=== PATIENT | female | born 1995 | race Caucasian/White ===

== ENCOUNTER 2021-06-22 00:01 | Inpatient (IN) | payer OTHER, SELFPAY ==
[2021-06-22] VITALS (206 sets, daily range): BP systolic 89–137; BP diastolic 41–90; PULSE 53–142; RESP 18; TEMP 36.2–37.4; O2SAT 83–100; BMI 28.9
--- NOTE | 2021-06-22 00:01 | LDADM ---
This patient, Nasrin Soriano, was admitted to Labor/Delivery/Recovery 107 on 06/22/21 at 00:01. Plans for labor, pain management and were discussed with patient. Patient/family oriented to hospital policies and general routines including ID bracelet, bed and alarms, visiting hours, pain management, procedures, bathroom and other care routines, personal items, smoking policy, room service/diet and guest tray routines, security routines, and visiting hours. Patient/Family are encouraged to report perceived risks to care and to ask questions if they do not understand what they are told or what they should do. See OBIX for further documentation.
[2021-06-22 00:44] LABS: Basophils Absolute Auto 0.1 K/mm3 (0.0-0.1); Basophils Percent Auto 0.5 % (0.2-1.2); Eosinophils Absolute Auto 0.2 K/mm3 (0-0.3); Hematocrit 33.5 % (37.0-47.0); Hemoglobin 11.6 g/dL (12.0-15.0); Immature Granulocyte Absolute 0.03 K/mm3 (0.00-0.031); Immature Granulocyte Percent A 0.3 % (0-0.5); Lymphocytes Absolute Auto 1.74 K/mm3 (0.9-3.2); Lymphocytes Percent Auto 17.8 % (18.3-44.2); Mean Corpuscular HGB Conc 34.6 g/dl (32-36); Mean Corpuscular Hemoglobin 31.1 pg (26-34); Mean Corpuscular Volume 89.8 fl (80-100); Monocytes Absolute Auto 0.7 K/mm3 (0.1-0.6); Monocytes Percent Auto 7.4 % (2.6-8.5); Neutrophils Absolute Auto 7.1 K/mm3 (1.3-6.7); Platelet Count Result 278 k/mm3 (150-375); Red Blood Count 3.73 M/mm3 (4.2-5.4); Red Cell Distribution Width 13.6 % (11.5-14.5); White Blood Count 9.8 K/mm3 (4.5-10.0)
[2021-06-22] MEDS: LACTATED RINGERS 1,000 ML 125 ML IV CONT ×5 (00:58→23:46)
[2021-06-22] MEDS: miSOPROStol 25 MCG TABLET VAGINAL ×2 (01:43→05:43)
[2021-06-22 07:06] LABS: Rapid Plasma Reagin Non-Reactive (NonReactive)
[2021-06-22] MEDS: OXYTOCIN 30 UNITS/NS 500 ML 30 UNITS/500 ML BAG 6 UNITS IV CONT (10:55)
--- NOTE | 2021-06-22 12:27 | WPDHPUPDATE1 ---
History and Physical Update Update Date/Time: 06/22/21 12:27 25 yo at 40w3d who presents for IOL. She endorses good movement. She denies any vaginal bleeding or leakage of fluid. Her has been uncomplicated thus far. History and Physical has been reviewed, including an updated exam of the patient. There are NO changes in the patient's condition. Risks, benefits, and alternatives have been discussed and questions answered. Patient agrees to proceed with procedure. A/P: admit to L&D routine admission orders Rh+ GBS neg cytotec induction continuous EFM
--- NOTE | 2021-06-22 12:29 | PM.OBPNLAB ---
Pain Control Date/time seen: 06/22/21 12:29 Pain control: tolerating well Pelvic Exam Dilation (cm): 3 station: 0 Amniotic membrane status: Intact Contractions Monitor mode: External Status status: Category l Assessment and Plan Assessment: induction ongoing Comments: AROM for clear fluid
[2021-06-22] MEDS: LACTATED RINGERS 1,000 ML 999 ML IV CONT (13:25)
--- NOTE | 2021-06-22 15:29 | WPDANESEPPF ---
Anes - Initial Pre Proc Eval Procedure: labor epidural Date/Time: 06/22/21 15:29 Surgeon: Ryan Neal MD Pre Op Diagnosis: labor pain Patient Data Age: 25 Gender: F Height: 1.6 m Weight: 74 kg Last Vital Signs Temp 36.2 C L 06/22/21 14:00 Pulse 72 06/22/21 15:16 Resp 18 06/22/21 05:39 BP 110/60 06/22/21 15:16 Pulse Ox 100 06/22/21 15:29 Allergies Allergy/AdvReac Type Severity Reaction Status Date / Time orange Allergy Swelling Verified 06/20/21 15:40 of the Eye Home Medications Medication Instructions Recorded Confirmed Type ferrous sulfate 134 mg PO DAILY 06/20/21 06/20/21 History prenat.vits,yahir,[id number] 1 tablet PO DAILY 06/20/21 06/22/21 History [ #2] Laboratory Tests 06/22/21 06/22/21 00:31 00:31 WBC 9.8 K/mm3 K/mm3 (4.5-10.0) RBC 3.73 M/mm3 L M/mm3 (4.2-5.4) Hgb 11.6 g/dL L g/dL (12.0-15.0) Hct 33.5 % L % (37.0-47.0) MCV 89.8 fl fl (80-100) MCH 31.1 pg pg (26-34) MCHC 34.6 g/dl g/dl (32-36) RDW 13.6 % % (11.5-14.5) Plt Count 278 k/mm3 k/mm3 (150-375) MPV 11.0 fl H fl (7.4-10.4) Immature Gran % (Auto) 0.3 % % (0-0.5) Neut % (Auto) 72.0 % % (45.5-73.1) Lymph % (Auto) 17.8 % L % (18.3-44.2) Hand % (Auto) 7.4 % % (2.6-8.5) Eos % (Auto) 2.0 % % (0-4.4) Baso % (Auto) 0.5 % % (0.2-1.2) Lymph # (Auto) 1.74 K/mm3 K/mm3 (0.9-3.2) Hand # (Auto) 0.7 K/mm3 H K/mm3 (0.1-0.6) Eos # (Auto) 0.2 K/mm3 K/mm3 (0-0.3) Baso # (Auto) 0.1 K/mm3 K/mm3 (0.0-0.1) Abs Immat Gran (auto) 0.03 K/mm3 K/mm3 (0.00-0.031) Absolute Neuts (auto) 7.1 K/mm3 H K/mm3 (1.3-6.7) Absolute Nucleated RBC 0.0 K/mm3 K/mm3 (0.0-0.012) Nucleated RBC % 0.0 % % (0.0-0.2) RPR Non-reactive (NonReactive) Patient hx anesthesia problems: none Family hx anesthesia problems: none Results Review: All pre-operative results and documents have been reviewed as part of the pre-operative evaluation. [facility] Family History Family History (Updated 06/20/21 @ 15:44 by Leo Gutierrez RN) Grandparent Acute myocardial infarction Testicular cancer Cerebrovascular accident Diabetes mellitus Hypertension Social History Social History Smoking status: Never smoker Substance use: never Spiritual care concerns: No Anes - Eval Final PreProcedure Day of Procedure 06/22/21 15:29 Patient weight: overweight ASA classification: II Anesthesia type and monitoring: regional epidural and standard monitoring Results Review: All pre-operative results and documents have been reviewed as part of the pre-operative evaluation. Informed Consent: The patient's anesthetic plan and its attendant risks and benefits were discussed with the patient/family/POA. Questions were solicited and answers provided to the satisfaction of the patient/family/POA.
[2021-06-23] VITALS (163 sets, daily range): BP systolic 84–135; BP diastolic 24–109; PULSE 32–138; RESP 16–18; TEMP 36.2–37.4; O2SAT 78–100
--- NOTE | 2021-06-23 05:53 | P.PNOB_ITS ---
Pain Control Date/time seen: 06/23/21 05:53 Pain control: epidural Comments: Pt becoming more uncomfortable with pushing. Pt has been awake since admission and is exhausted with pushing. Pelvic Exam Dilation (cm): 10 Effacement (%): 100 station: 0 Amniotic membrane status: Ruptured Contractions Monitor mode: Internal Status status: Category ll Assessment and Plan Assessment: induction ongoing Plan: Comments: Pt has been complete and pushing since 0300. head has remained at 0 station. the cervix has noted to be edematous. Pt complains of increased pain with pushing. Concern for CPD. Pt states she cannot push anymore due to pain. Discussed options with patient. Pt would like to proceed with primary c- section for failure to progress.
--- NOTE | 2021-06-23 05:57 | PM.IMHP ---
H&P: HPI History of Present Illness Date/Time: 06/23/21 05:57 Chief Complaint: intrauterine at term Narrative: 25 yo G1PO at 40w3d who presents for IOL. Pt has been uncomplicated thus far. She endorses good movement. Review of Systems Cardiovascular: Cardiovascular: Denies chest pain, Denies leg edema, Denies palpitations, Denies dyspnea and Denies dyspnea on exertion Respiratory: Respiratory: Denies cough, Denies dyspnea and Denies dyspnea on exertion Gastrointestinal: Gastrointestinal: Denies abdominal pain, Denies constipation, Denies diarrhea, Denies nausea and Denies vomiting Genitourinary: Genitourinary: Denies hematuria, Denies urinary frequency, Denies dysuria, Denies pelvic pain, Denies urinary incontinence and Denies vaginal discharge Neurologic: Reports system reviewed and no additional complaints, except as documented Psychiatric: Psychiatric: Reports no additional psychiatric complaints Endocrine: Endocrine: Denies palpitations [facility] Family History Family History (Updated 06/20/21 @ 15:44 by Leo Gutierrez RN) Grandparent Acute myocardial infarction Testicular cancer Cerebrovascular accident Diabetes mellitus Hypertension Social History Social History Smoking status: Never smoker Substance use: never Spiritual care concerns: No Meds Home Medications and Allergies Home Medications Medication Instructions Recorded Confirmed Type ferrous sulfate 134 mg PO DAILY 06/20/21 06/20/21 History prenat.vits,yahir,[id number] 1 tablet PO DAILY 06/20/21 06/22/21 History [ #2] Allergies Allergy/AdvReac Type Severity Reaction Status Date / Time orange Allergy Swelling Verified 06/20/21 15:40 of the Eye Vital Signs Vital Signs - 24 hr 06/22/21 06:01 06/22/21 07:01 06/22/21 08:00 Temperature 36.3 C L Pulse Rate 75 63 Blood Pressure 107/66 105/65 Pulse Oximetry 06/22/21 08:01 06/22/21 09:01 06/22/21 10:01 Temperature Pulse Rate 66 64 70 Blood Pressure 98/51 L 108/66 102/55 L Pulse Oximetry 06/22/21 11:01 06/22/21 12:01 06/22/21 12:30 Temperature 37.0 C Pulse Rate 86 67 Blood Pressure 122/73 113/65 Pulse Oximetry 06/22/21 13:01 06/22/21 13:31 06/22/21 13:32 Temperature 36.6 C Pulse Rate 65 Blood Pressure 105/82 Pulse Oximetry 100 83 L 06/22/21 13:37 06/22/21 13:38 06/22/21 13:41 Temperature Pulse Rate 96 86 Blood Pressure 109/90 131/70 Pulse Oximetry 99 06/22/21 13:42 06/22/21 13:43 06/22/21 13:44 Temperature Pulse Rate 84 Blood Pressure 115/64 Pulse Oximetry 100 96 06/22/21 13:46 06/22/21 13:48 06/22/21 13:49 Temperature Pulse Rate 94 101 H Blood Pressure 123/71 132/64 Pulse Oximetry 100 06/22/21 13:51 06/22/21 13:53 06/22/21 13:54 Temperature Pulse Rate 105 H 89 Blood Pressure 107/67 117/66 Pulse Oximetry 100 06/22/21 13:56 06/22/21 13:58 06/22/21 13:59 Temperature Pulse Rate 89 89 Blood Pressure 101/63 118/69 Pulse Oximetry 100 06/22/21 14:00 06/22/21 14:01 06/22/21 14:04 Temperature 36.2 C L Pulse Rate 98 101 H Blood Pressure 96/53 L 89/66 L Pulse Oximetry 100 06/22/21 14:06 06/22/21 14:08 06/22/21 14:09 Temperature Pulse Rate 79 68 Blood Pressure 101/67 115/83 Pulse Oximetry 100 06/22/21 14:11 06/22/21 14:13 06/22/21 14:14 Temperature Pulse Rate 64 75 Blood Pressure 137/66 118/73 Pulse Oximetry 100 06/22/21 14:16 06/22/21 14:18 06/22/21 14:19 Temperature Pulse Rate 71 56 L Blood Pressure 115/67 112/62 Pulse Oximetry 100 06/22/21 14:21 06/22/21 14:23 06/22/21 14:24 Temperature Pulse Rate 61 64 Blood Pressure 112/67 116/64 Pulse Oximetry 100 06/22/21 14:26 06/22/21 14:28 06/22/21 14:29 Temperature Pulse Rate 65 62 Blood Pressure 108/41 L 111/67 Pulse Oximetry 100 06/22/21 14:31 06/22/21 14:33 06/22/21 14:34 Dangelo
[2021-06-23] MEDS: ceFAZolin 2 GM/D5W 50 ML 2 GM/50 ML BAG IVPB (06:39)
--- NOTE | 2021-06-23 07:39 | W.PM.PROC2 ---
Procedure Note - Detailed Date of Procedure 06/23/21 Pre-op Diagnosis intrauterine at term arrest of descent Post-op Diagnosis same Procedure Performed low transverse section Surgeon Ryan Neal MD Anesthesia spinal and epidural Indications arrest of descent Description of Procedure The patient was taken to the operating room. A combined spinal epidural anesthesic was administered and found to be adequate at a t-10 level. The patient was placed in a supine position with a slight left lateral tilt. A wong catheter was placed with return of clear urine. A Bovie grounding pad was placed. Surgical prep was performed and surgical drapes were placed. A surgical time out was performed. A Pfannenstiel skin incision was then made with the scalpel and carried through to the underlying layer of fascia. The fascia was then incised in the midline and the incision was extended laterally with the Hyde scissors. The superior aspect of the fascia was then grasped with the William clamps, elevated, and the underlying rectus muscles dissected off bluntly and sharply. Attention was then turned to the inferior aspect of this incision which, in a similar fashion, was grasped, tented up with the William clamps, and the rectus muscles dissected off both bluntly and sharply. The rectus muscles were then in the midline. The peritoneum was identified and entered bluntly. The peritoneal incision was then extended superiorly and inferiorly with good visualization of the bladder. The vesico-uterine serosa was identified and dissected to create a bladder flap. The bladder blade was reinserted. The uterus was inspected for rotation. A low-transverse uterine incision was made sharply with the scalpel and entry was made into the uterine cavity. The uterine incision was extended laterally bluntly. The bladder blade was removed and the fetus was delivered atraumatically. The nose and mouth were suctioned with a bulb syringe. The umbilical cord was clamped twice and cut. The was handed off to the waiting staff. At the time of the delivery, the had good color, tone and grimace. The infant cried with minimal stimulation. A second segment of umbilical cord was clamped and cut for cord blood gasses. Cord blood was collected for determination of the blood type and for direct Hernandez. The placenta was delivered spontaneously without difficulty. The placenta appeared grossly normal and complete. The uterus was exteriorized and cleared of all clots and debris. The uterine incision was repaired using 0-monocryl suture in a running fashion. A second layer of 0 Monocryl suture was used in an imbricating fashion to obtain excellent hemostasis and uterine strength. The uterine closure was inspected for hemostasis. The posterior aspect of the uterus and the broad ligaments were inspected and the posterior cul-de-sac cleared of fluid and blood clots. The uterine closure was again inspected and found to be hemostatic. The uterus was returned to the abdominal cavity. The pericolic gutters were inspected and were cleared of all blood clots and debris. The uterine closure was then re inspected to ensure hemostasis as were all subfascial tissues. The peritoneum was closed using 3-0 vicryl in a running fashion. The fascia was reapproximated with 0-vicryl in a running fashion. The subcutaneous tissue was irrigated and hemostasis achieved with electrocautery. It was reapproximated with 3-0 vicryl in a running fashion. The skin was closed with 4-0 vicryl in a subcuticular fashion. A sterile dressing was applied to the wound. The patient tolerated the procedure well. Sponge, lap and needle counts were correct times three. The patient was taken to recovery in stable condition and without anticipated complications. Estimated Blood Loss 525 Urine Output 100 Drains No Packing No Pathology none sent Complications No immediate complications Condition stable D
[2021-06-23] MEDS: OXYTOCIN 30 UNITS/NS 500 ML 30 UNITS/500 ML BAG 125 UNITS IV CONT (08:12)
[2021-06-23] MEDS: KETOROLAC 30 MG/ML VIAL (*BKC) IV PUSH (09:22)
--- NOTE | 2021-06-23 11:50 | PC.NURSE ---
Consult with pt., mother reports she was given a nipple shield in L&D. Infant was unable to latch and draw nipple in due to flat nipples. Infant appears to have a tight frenulum and unable to thrust tongue past gum ridge. Mother has flat nipples with bruising noted to left nipple. Reviewed feeding cues, frequencies, duration of feedings, feeding elimination flow sheet, and signs of adequate intake. Demonstrated stimulation techniques to wake for feeding. Assisted with infant to breast. Reviewed positioning/alignment in cross cradle, holding breast in ?U? hold and guided asymmetrical latch on. Reviewed rational for each. is making eager attempts. Several attempts made without a successful latch. Suggested to use nipple shield. Instructions given on application and cleaning of shield. Discussed nipple shield precautions and possible complications. Patient able to return demonstration on proper application of shield. Discussed the need to initiate pumping if continues to nurse with the shield. Patient verbalizes understanding. With shield in place, several attempts before was able to latch correctly. Infant nursed sleepily for bursts of suckling followed with long pausing occasional swallowing noted. Reviewed signs of a correct latch, effective nursing and suck swallow ratio. Discussed the difference of effective vs ineffective feeding. Reviewed infant is latching with good burst of suckling, he is not feeding consistently with adequate milk transfer at this time and continues to need to be supplement after . Feeding options discussed, Feeding Plan is for mother to put infant to breast each feeding for up to 15 minutes, then pace feed supplement 20 mls and pump for 10-15 minutes. Parents are comfortable with supplementation and pumping. If infant begins to nurse effectively with long draws and frequent swallowing noted, infant may decrease supplementation and discontinue pumping. Suggested mother have LC spa director/finance observe feeding before discontinuing supplementation. Discussed increasing supplementation as infant requires to satisfactions. Reviewed paced feeding and suggested to stop when is satisfied, as long as is having required output. With increased supplementation may not want to feed for 4 hours. Mother will continue to pump on infant feeding schedule and will increase session to 20 minutes if pumping every 4 hours. Instructed mother to call out for RN assistance if she is unable to latch infant for feeding or she has discomfort with nursing. Instructed feeding should be initiated three hours from start of last feeding or if feeding cues are noted before. Mother voiced understanding of information shared.
--- NOTE | 2021-06-23 12:00 | PC.NURSE ---
Breast pump provided due to ineffective feeding/nipple shield use. Instructions given on breast pump care and usage, pumping schedule, nipple care, and collection and storage of breast milk. Encouraged [id number], breast massage and manual expression to stimulate supply. Assessed patient for correct flange size, placement and draw. Patient verbalizes and demonstrates understanding of instructions.
--- NOTE | 2021-06-23 13:58 | PC.NURSE ---
1040-Patient transferred to post room #282 via stretcher. Support person present. Oriented to unit, room, information board, rooming in, admission packet and security measures. Patient verbalizes understanding.
[2021-06-23] MEDS: DEXTROSE 5%/0.45% SOD CHL 1,000 ML 125 ML IV CONT (15:26)
--- NOTE | 2021-06-23 15:30 | PC.NURSE ---
Mother called out for assist with feeding. Assisted with to breast. Reviewed positioning/alignment in football, holding breast in C hold and guided asymmetrical latch on. was able to latch correctly with nipple shield. Infant nursed sleepily with a few short bursts followed with long pausing and falling asleep. Several attempts made to wake infant to nurse. Mother will supplement and pump.
[2021-06-23] MEDS: DOCUSATE SODIUM 100 MG CAPSULE PO (17:40)
[2021-06-23] MEDS: HYDROcodone/acetaminophen (*CRX) 10-325 MG TABLET 1 TAB PO (20:30)
[2021-06-23] MEDS: IBUPROFEN 600 MG TABLET PO (20:30)
[2021-06-24] VITALS: BP 98/60; PULSE 90; RESP 18; TEMP 36.8; O2SAT 100
[2021-06-24] MEDS: IBUPROFEN 600 MG TABLET PO ×3 (03:39→17:02)
[2021-06-24] MEDS: HYDROcodone/acetaminophen (*CRX) 5-325 MG TABLET 1 TAB PO ×3 (03:39→17:03)
[2021-06-24 04:38] VITALS: BP 108/57; PULSE 92; RESP 16; TEMP 37; O2SAT 100
[2021-06-24 04:44] LABS: Basophils Absolute Auto 0.1 K/mm3 (0.0-0.1); Basophils Percent Auto 0.4 % (0.2-1.2); Eosinophils Absolute Auto 0.2 K/mm3 (0-0.3); Eosinophils Percent Auto 1.4 % (0-4.4); Hematocrit 26.2 % (37.0-47.0); Hemoglobin 8.8 g/dL (12.0-15.0); Immature Granulocyte Absolute 0.06 K/mm3 (0.00-0.031); Immature Granulocyte Percent A 0.5 % (0-0.5); Lymphocytes Absolute Auto 1.29 K/mm3 (0.9-3.2); Mean Corpuscular HGB Conc 33.6 g/dl (32-36); Mean Corpuscular Hemoglobin 31.4 pg (26-34); Mean Corpuscular Volume 93.6 fl (80-100); Mean Platelet Volume 10.7 fl (7.4-10.4); Monocytes Percent Auto 7.6 % (2.6-8.5); Neutrophils Absolute Auto 10.4 K/mm3 (1.3-6.7); Neutrophils Percent Auto 80.1 % (45.5-73.1); Platelet Count Result 202 k/mm3 (150-375); Red Cell Distribution Width 14.1 % (11.5-14.5)
--- NOTE | 2021-06-24 09:01 | P.PNOB_ITS ---
OB - PN: Subj Subjective Date/time seen: 06/24/21 09:01 Patient comments: no complaints, pain well controlled, tolerating diet and flatus present OB - PN: Obj Data Labs CBC & Chem 7: 06/24/21 03:47 Labs: Laboratory Results - last 24 hr 06/23/21 06/24/21 10:30 03:47 WBC 13.0 H RBC 2.80 L Hgb 8.8 L Hct 26.2 L MCV 93.6 MCH 31.4 MCHC 33.6 RDW 14.1 Plt Count 202 MPV 10.7 H Immature Gran % (Auto) 0.5 Neut % (Auto) 80.1 H Lymph % (Auto) 10.0 L [place] % (Auto) 7.6 Eos % (Auto) 1.4 Baso % (Auto) 0.4 Lymph # (Auto) 1.29 [place] # (Auto) 1.0 H Eos # (Auto) 0.2 Baso # (Auto) 0.1 Abs Immat Gran (auto) 0.06 H Absolute Neuts (auto) 10.4 H Absolute Nucleated RBC 0.0 Nucleated RBC % 0.0 Blood Type A Positive Antibody Screen Negative OB - PN A/P Plan day: 1 Plan: routine care Comments: patient doing well H/H , will start iron supplementation afebrile, VSS incision C/D/I wong removed, voiding spontaneously plan for infant circumcision today. Risks, benefits, alternatives discussed. Consent obtained continue routine post op care Time Spent With Patient Time: Total time spent is greater than 50% in coordination of care (as documented) at patient's floor/unit and/or counseling patient: Time with patient: less than 15 minutes Review of Systems Constitutional: Constitutional: Reports no additional constitutional complaints Cardiovascular: Cardiovascular: Reports no additional cardiovascular complaints Respiratory: Respiratory: Reports no additional respiratory complaints Gastrointestinal: Gastrointestinal: Reports no additional gastrointestinal complaints Genitourinary: Genitourinary: Reports no additional female genitourinary complaints Exam Const: General: comfortable and no acute distress Resp: Effort & Inspection: normal respiratory effort Auscultation: clear to auscultation bilaterally Cardio: Rate: regular rate GI: GI Palp: Yes Soft to palpation, Yes Tenderness to palpation present (GI) (around incision ) and No Guarding due to palpation present (GI) Auscultation: normal bowel sounds Other: incision C/D/I, covered with Dermabond Psych: Appearance: grossly normal Mental Status: mental status grossly normal Affect: normal affect
[2021-06-24] MEDS: POLYSACCHARIDE IRON COMPLEX 150 MG CAPSULE PO ×2 (09:33→17:02)
[2021-06-24] MEDS: DOCUSATE SODIUM 100 MG CAPSULE PO ×2 (09:33→17:02)
[2021-06-24] MEDS: MULTIVIT/MIN/PREN/FOL AC/IRON TABLET 1 TAB PO (09:33)
[2021-06-24 11:50] VITALS: BP 101/58; PULSE 79; RESP 14; TEMP 36.4; O2SAT 99
--- NOTE | 2021-06-24 12:02 | WPDANLDNPN2 ---
Anes-Prog Note L&D-Neuraxial Date/Time: 06/24/21 12:02 Neuraxial medications: intrathecal PF morphine Opiod-related complaints: none Patient feedback: Patient satisfied with post-operative pain management.
--- NOTE | 2021-06-24 12:03 | WPDANLDPN2 ---
Anes-Prog Note L&D Date/Time: 06/24/21 12:03 Comfortable throughout: section Neuraxial method: spinal Epidural/Spinal procedure site: clean & non-tender Neuro status: Neuro function grossly intact. Cardiovascular status: normal Respiratory status: normal Airway patency: baseline Mental status: baseline Post-Op hydration status: normal Vital Signs: Last Vital Signs Temp 36.4 C 06/24/21 11:50 Pulse 79 06/24/21 11:50 Resp 14 06/24/21 11:50 BP 101/58 L 06/24/21 11:50 Pulse Ox 99 06/24/21 11:50 Pain score (VAS): 0 I/O: Intake & Output 06/23/21 06/24/21 06/24/21 23:59 07:59 15:59 Intake Total 877 Output Total 500 2400 Balance 377 -2400 Post-procedural complaints: none Patient feedback: Patient satisfied with anesthetic care.
[2021-06-25] MEDS: HYDROcodone/acetaminophen (*CRX) 10-325 MG TABLET 1 TAB PO ×2 (02:30→08:54)
[2021-06-25] MEDS: SIMETHICONE 80 MG TAB.CHEW PO (02:30)
[2021-06-25] MEDS: IBUPROFEN 600 MG TABLET PO ×2 (02:30→08:53)
--- NOTE | 2021-06-25 08:12 | P.DS_ITS ---
DS: Admitting Diagnosis Discharge Date 06/25/21 Admitting Diagnosis intrauterine at term OB - DS: Summary OB Procedures : None OB Procedures Intrapartum: OB Procedures: : None Peripartum Data Infant Delivery Method: Section Procedures: Procedures Operation Date: 06/23/21 06:30 Actual Procedure Side Surgeon p Section Ryan Neal MD complications: none Status at Discharge Functional status at discharge: independent ambulation Overall status at discharge: patient is progressing back to baseline Time Spent with Patient Time attestation: Total time spent providing and/or coordinating discharge services: Time spent: Less than 30 minutes Exam Const: General: comfortable and no acute distress Resp: Effort & Inspection: normal respiratory effort Auscultation: clear to auscultation bilaterally Cardio: Rate: regular rate GI: Inspection: non-distended GI Palp: Yes Soft to palpation, No Firmness to palpation present (GI), Yes Tenderness to palpation present (GI) (mild tend erness over incision ) and No Guarding due to palpation present (GI) Auscultation: normal bowel sounds Psych: Appearance: grossly normal Mental Status: mental status grossly normal Discharge Plan Discharge Discharging Clinician: Ryan Neal Patient Disposition: Home, Self-Care Activity: as tolerated and pelvic rest Diet: regular Patient Instructions: Antibiotic Form, (DC) Stand Alone Forms: General Discharge Information Follow-up/Referrals: Ryan Neal MD [Physician] - 4 Weeks Discharge Medications: New oxycodone-acetaminophen 5-325 mg tablet 1 tablet PO Q6H PRN (Reason: pain) Qty: 28 RF: 0 acetaminophen [Mapap (acetaminophen)] 325 mg Tablet 650 mg PO Q6H PRN (Reason: Mild Pain (1-3)) Qty: 30 RF: 0 ibuprofen 600 mg Tablet 600 mg PO Q6H PRN (Reason: Cramping) Qty: 30 RF: 0 Continued ferrous sulfate 134 mg (27 mg iron) Tablet 134 mg PO DAILY RF: 0 #2 Tablet 1 tablet PO DAILY RF: 0 Date of admission: 06/22/21 00:01 Primary Care Provider: PHYSICIAN,INSURANCE COMPLIANCE ANALYST Admitting Provider: Ryan Neal Attending physician on admission: Ryan Neal Condition: Stable
[2021-06-25 08:25] VITALS: BP 107/50; PULSE 80; RESP 16; TEMP 36.1; O2SAT 100
[2021-06-25] MEDS: POLYSACCHARIDE IRON COMPLEX 150 MG CAPSULE PO (08:53)
[2021-06-25] MEDS: DOCUSATE SODIUM 100 MG CAPSULE PO (08:54)
[2021-06-25] MEDS: MULTIVIT/MIN/PREN/FOL AC/IRON TABLET 1 TAB PO (08:54)
[2021-06-25] MEDS: TETANUS,DIPHTHERIA,AC PERTUSSIS ADULT (0.5 ML) BOOSTRIX IM (08:55)
--- NOTE | 2021-06-25 08:55 | PC.NURSE ---
Patient viewed the discharge video Mother & Baby Care, The First Two Weeks . Patient was given the opportunity and encouraged to ask questions. Patient verbalized understanding of information shared and has been given the mother/baby guide for home reference.
[2021-06-27 09:00] VITALS: BP 116/75; PULSE 72; RESP 16; TEMP 37.1; O2SAT 100
== END 2021-06-25 12:41 | disposition home or self-care (01) | DRG 540 ==
LOC: ANHLDR 15:30 → ANHOB2 06-23 10:58
PROVIDERS: Admitting Provider Student in an Organized Health Care Education/Training Program; Visit Provider Student in an Organized Health Care Education/Training Program
PROC: 10D00Z1 Extraction of Products of Conception, Low, Open Approach (ICD-10-PCS; CPT 59514; principal; 2021-06-23 06:30)
DX: O62.1 Secondary uterine inertia (principal); O77.0 Labor and delivery complicated by meconium in amniotic fluid; Z3A.40 40 weeks gestation of pregnancy; Z37.0 Single live birth
CPT/HCPCS: 36415; 85025; 86592; 86850; 86900; 86901; 90715; A9270; J0131; J0456; J0690; J1885; J2274; J2405; J2590; J2795; J3010; J7120

== ENCOUNTER 2023-08-30 02:08 | Day surgery (SDC) | payer OTHER, SELFPAY ==
--- NOTE | 2023-08-27 16:09 | P.HP_ITS ---
H&P: HPI History of Present Illness Date/Time: 08/27/23 16:09 Chief Complaint: Pelvic pain and heavy bleeding Narrative: 27 para 1 for laparoscopy hysteroscopy dilatation curettage. Her complaints are pelvic pain pelvic discomfort dyspareunia as well as heavy bleeding. Ultrasound was essentially unremarkable shortness thickened endometrium. She will undergo laparoscopy hysteroscopy dilatation curettage risks and benefits reviewed including minutes was aspiration pneumonia bleeding transfusion infection perforation injury to bowel, bladder, ureters, or other internal organs with need for open laparotomy. She received the ACOG handout entitled laparoscopy as well as hysteroscopy dilatation curettage and asked to proceed [facility] Family History Family History Grandparent Acute myocardial infarction Testicular cancer Cerebrovascular accident Diabetes mellitus Hypertension Social History Social History Smoking status: Never smoker Substance use: never Spiritual care concerns: No Meds Home Medications and Allergies Home Medications Medication Instructions Recorded Confirmed Type ferrous sulfate 134 mg (27 mg 134 mg PO DAILY 06/20/21 06/20/21 History iron) tablet prenat.vits,yahir,gnd-naon-xfnez 1 tablet PO DAILY 06/20/21 06/22/21 History acetaminophen 325 mg tablet (Mapap 650 mg PO Q6H PRN Mild Pain (1-3) 06/25/21 Rx (acetaminophen)) #30 tabs ibuprofen 600 mg tablet 600 mg PO Q6H PRN Cramping #30 tabs 06/25/21 Rx oxycodone-acetaminophen 5 mg-325 1 tablet PO Q6H PRN pain #28 tabs 06/25/21 Rx mg tablet Allergies Allergy/AdvReac Type Severity Reaction Status Date / Time orange Allergy Swelling Verified 06/20/21 15:40 of the Eye Exam Const: General: cooperative, healthy appearing and comfortable Nutritional Appearance: average body habitus Orientation/consciousness: oriented to person, oriented to place and oriented to time HENMT: Head: normal to inspection Resp: Effort & Inspection: normal respiratory effort Cardio: Rate: regular rate Rhythm: regular rhythm Heart sounds: S1 normal heart sound present and S2 normal heart sound present GI: Inspection: normal to inspection Auscultation: normal bowel sounds : External Female Exam: normal external appearance Speculum Exam - Vagina: normal appearance of the vagina Speculum Exam - Cervix: normal appearance of the cervix Bimanual exam- vagina & uterus: Uterine tenderness Bimanual Exam- Adnexa, other: tender bilaterally Assessment and Plan Assessment and plan (1) Excessive bleeding: Code(s): R58 - Hemorrhage, not elsewhere classified Status: Acute (2) Pelvic pain: Code(s): R10.2 - Pelvic and perineal pain Status: Acute
[2023-08-28 12:16] VITALS: BMI 25.7
--- NOTE | 2023-08-28 12:21 | PC.NURSE ---
Report to the Outpatient Waiting Room, entrance under the green pavilion located off [facility], at time 0600 on date 08/30/23. Planned Procedure Time: 0730. Time changes happen often and if your time is changed the preop area will call you the afternoon before. - You and your visitor will be asked to self-screen and do not enter if you have any COVID symptoms. - A mask is optional within the hospital at this time. Patients may have clear liquids (water, carbonated beverages, clear teas, apple juice) until 3 hours prior to surgery with a maximum of 20 ounces. - No food from midnight until time of surgery Take the following medications with a SIP of water the morning of surgery: BUPROPION DO NOT STOP ANY OF YOUR OTHER PRESCRIPTION MEDICATIONS PRIOR TO SURGERY ?EXCEPT THE FOLLOWING Medications to discontinue per physician: N/A Date to take last dose: N/A Please no make-up, nail maltese, hairspray, perfume, deodorant, or body powder the day of surgery. No jewelry (including any body piercings) or valuables the day of surgery, leave them at home. Please take a shower or bath the night before, or the morning of, surgery with an antibacterial soap. Wear comfortable, loose fitting clothing. - Jewelry must be removed prior to entering the operating room. Rings and piercings that are not removed may be cut off. - The hospital will not accept responsibility for valuables. - Please leave all valuables, including medications, at home the day of surgery. If you are going home after surgery, a licensed screw driver operator must drive you home. - NO public transportation without another adult if you receive anesthesia. - We recommend that an adult stay with you for 24 hours following discharge. - We also recommend that you do not drive, make important decision, drink alcoholic beverages, or take any drugs that were not prescribed by your health care provider for at least 24 hours after your discharge time. Follow any additional instructions given to you from your surgeon. If you or anyone in your household have experienced Covid symptoms in the past week, please notify your surgeon or the nurse liaison at the phone number below for possible testing. Telephone instructions given to PT Jose David PINZON and asked if any additional questions and then verbalized understanding. Patient advised to call surgeon office or pre surgery nurse liaison [phone] if any additional questions.
[2023-08-30] VITALS (8 sets, daily range): BP systolic 90–116; BP diastolic 59–75; PULSE 72–92; RESP 11–18; TEMP 36.2–36.6; O2SAT 98–100
--- NOTE | 2023-08-30 06:14 | WPDHPUPDATE1 ---
History and Physical Update Update Date/Time: 08/30/23 06:14 History and Physical has been reviewed, including an updated exam of the patient. There are NO changes in the patient's condition. Risks, benefits, and alternatives have been discussed and questions answered. Patient agrees to proceed with procedure.
[2023-08-30] MEDS: SCOPOLAMINE 1.5 MG PATCH TRANSDERM (06:40)
[2023-08-30] MEDS: LACTATED RINGERS 1,000 ML 30 ML IV CONT ×2 (06:40→09:25)
[2023-08-30] MEDS: KETOROLAC 15 MG/ML VIAL (*BKC) IV PUSH (06:42)
[2023-08-30] MEDS: ACETAMINOPHEN 500 MG TABLET 1000 MG PO (06:42)
[2023-08-30 06:48] LABS: Hematocrit 37.9 % (37.0-47.0); Hemoglobin 12.3 g/dL (12.0-15.0)
--- NOTE | 2023-08-30 06:59 | P.PNAN_ITS ---
Anes - Initial Pre Proc Eval Procedure: Operation Date: 08/30/23 07:30 Proposed Procedures p Diagnostic Laparoscopy, Hysteroscopy with Dilation and Curettage - Chris Valles MD Date/Time: 08/30/23 06:59 Surgeon: Chris Valles MD Pre Op Diagnosis: Menorrhagia, Dysmenorrhea, Pelvic pain Patient Data Age: 27 Gender: F Height: 1.6 m Weight: 67.7 kg Last Vital Signs Temp 36.6 C 08/30/23 06:15 Pulse 91 08/30/23 06:15 Resp 16 08/30/23 06:15 BP 116/74 08/30/23 06:15 Pulse Ox 100 08/30/23 06:15 O2 Del Method Room Air 08/30/23 06:15 Allergies Allergy/AdvReac Type Severity Reaction Status Date / Time orange Allergy Swelling Verified 08/30/23 06:22 of the Eye Home Medications Medication Instructions Recorded Confirmed Type bupropion HCl 300 mg 24 hr tablet, 300 mg PO DAILY 08/28/23 08/28/23 History extended release hydrocodone 5 mg-acetaminophen 325 1 tablet PO Q4H PRN pain #20 tabs 08/30/23 Rx mg tablet Laboratory Tests 08/30/23 06:30 Hgb 12.3 D g/dL (12.0-15.0) Hct 37.9 % (37.0-47.0) Patient hx anesthesia problems: none Family hx anesthesia problems: none Results Review: All pre-operative results and documents have been reviewed as part of the pre- operative evaluation. [facility] Past Medical History Medical History (Updated 08/30/23 @ 07:00 by Chris Ohara MD) Anxiety Overweight Surgical History Surgical History (Updated 08/30/23 @ 07:00 by Chris Ohara MD) History of section Family History Family History Grandparent Acute myocardial infarction Testicular cancer Cerebrovascular accident Diabetes mellitus Hypertension Social History Social History Smoking status: Never smoker Alcohol intake: never Substance use: never Substance use type: does not use Living arrangements: with family Spiritual care concerns: No Anes - Eval Final PreProcedure Day of Procedure 08/30/23 06:59 Patient weight: overweight Heart: regular rate and rhythm Lungs: clear to auscultation Airway: Mallampati scale class II Neurological: alert and oriented Last oral intake: >/= 8 hours ASA classification: II Emergent: no Anesthesia type and monitoring: general ETT and standard monitoring Results Review: All pre-operative results and documents have been reviewed as part of the pre- operative evaluation. Informed Consent: The patient's anesthetic plan and its attendant risks and benefits were discussed with the patient/family/POA. Questions were solicited and answers provided to the satisfaction of the patient/family/POA.
--- NOTE | 2023-08-30 08:00 | W.PM.PROC2 ---
Procedure Note - Detailed Date of Procedure 08/30/23 Pre-op Diagnosis Menorrhagia, Dysmenorrhea, Pelvic pain Post-op Diagnosis Same (With endometriosis) Procedure Performed laparoscopic destruction endometriosis /hysteroscopy dilatation Surgeon Chris Valles MD Anesthesia General Indications is a 27-year-old with pelvic pain and irregular bleeding Findings endometrial uterosacral approximately cc of seen normal-appearing ovaries and tubes bilaterally. Normal-appearing uterus. Normal-appearing appendix and Description of Procedure patient was prepped draped sterile placed dorsal position. Under excellent general anesthesia weighted speculum placed posterior fornix. Anterior lip of the cervix grasped with single-tooth. The Shafer's cannula inserted the cervix and attached to the single-tooth. Bladder draining clear urine weighted speculum was. The gloves were changed. An infraumbilical incision made Veress needle passed in the abdomen. Abdomen filled with CO2 gas to 15 the 5mm trocar advanced in the abdomen under direct visualization injury seen. Patient placed in Trendelenburg and a suprapubic incision made. The 5 trocar advanced under direct visualization assuring. The above findings were noted. The [id number] serosanguineous fluid was removed from cul-de-sac. This was irrigated clear. Small areas of powder burn endometriosis adrien looking endometriosis was seen and these point cauterized at 35 w per 2nd. Irrigation undertaken until clear photo documentation was undertaken. Lower sites removed after gas removed from the abdomen. The incisions closed with 4 Monocryl. Attention was turned to the hysteroscopic portion. The uterus sounded to 7cm. Serial dilatation with fragmented dilators performed followed by passage of the fetus hysteroscope. Fairly normal-appearing endometrium was seen but it was somewhat irregular. Each fallopian tube os could be seen no evidence of polyp or other abnormality seen. The uterus was then scraped over the entire 360? removing a mucoid substance. Under good grating sound was heard the instruments were withdrawn. The patient was awakened went to recovery in satisfactory condition. All sponge, needle, instrument counts were correct. There were no immediate complications Estimated Blood Loss 5 Drains No Packing No Pathology Yes Complications No immediate complications Condition Stable Disposition PACU
[2023-08-30] MEDS: fentaNYL CITRATE INJ (*CRX) 100 MCG/2 ML VIAL 25 MCG IV PUSH ×2 (08:28→08:31)
[2023-08-30] MEDS: ONDANSETRON INJ 4 MG/2 ML VIAL IV PUSH (08:47)
[2023-08-30] MEDS: oxyCODONE HCL (*CRX) 5 MG TAB IR PO (09:20)
== END 2023-08-30 10:05 | disposition home or self-care (01) ==
PROVIDERS: PCP Physician Assistant; Visit Provider Obstetrics & Gynecology
PROC: 0UDB8ZZ Extraction of Endometrium, Via Natural or Artificial Opening Endoscopic (ICD-10-PCS; CPT 58558; principal; 2023-08-30 07:30)
DX: N84.0 Polyp of corpus uteri (principal); R10.2 Pelvic and perineal pain; N94.10 Unspecified dyspareunia; N92.0 Excessive and frequent menstruation with regular cycle
CPT/HCPCS: 58662; 58558; 36415; 85014; 85018; 86850; 86900; 86901; 88305; A9270; J0330; J1100; J1885; J2250; J2405; J2704; J3010; J7120

== ENCOUNTER 2024-05-17 13:04 | Observation (INO) | payer OTHER, SELFPAY ==
[2024-05-17 13:28] VITALS: BP 80/62; PULSE 92
[2024-05-17 13:29] VITALS: BP 107/61; PULSE 85
[2024-05-17 13:30] VITALS: BP 105/64; PULSE 86
[2024-05-17] MEDS: METOCLOPRAMIDE HCL INJ 10 MG/2 ML VIAL IV PUSH (13:51)
[2024-05-17] MEDS: diphenhydrAMINE HCl INJ 50 MG/ML VIAL 25 MG IV PUSH (13:53)
[2024-05-17 14:01] VITALS: BP 112/64; PULSE 87
[2024-05-17 14:11] VITALS: BMI 27.7
[2024-05-17] MEDS: CAFFEINE 200 MG TABLET PO (14:20)
[2024-05-17 14:22] LABS: OBXCEM ROM Plus Negative
[2024-05-17 14:30] VITALS: BP 99/56; PULSE 77
[2024-05-17] MEDS: IRON SUCROSE COMPLEX 200 MG in SODIUM CHLORIDE 0.9% IV 100 ML 220 MG IVPB (14:50)
--- NOTE | 2024-06-09 12:13 | PM.IMHP ---
H&P: HPI History of Present Illness Date/Time: 06/09/24 12:13 Chief Complaint: Term with previous section Narrative: a 28-year-old multiparous patient for repeat section. Her has been uncomplicated. [facility], [facility] Past Medical History Medical History (Updated 06/09/24 @ 12:14 by Chris Valles MD) Anxiety Overweight Surgical History Surgical History (Updated 06/09/24 @ 12:14 by Chris Valles MD) History of section Family History Family History Grandparent Acute myocardial infarction Testicular cancer Cerebrovascular accident Diabetes mellitus Hypertension Social History Social History Smoking status: Never smoker Alcohol intake: never Substance use: never Substance use type: does not use Living arrangements: with family Spiritual care concerns: No Meds Home Medications and Allergies Home Medications Medication Instructions Recorded Confirmed Type bupropion HCl 300 mg 24 hr tablet, 300 mg PO DAILY 08/28/23 08/28/23 History extended release hydrocodone 5 mg-acetaminophen 325 1 tablet PO Q4H PRN pain #20 tabs 08/30/23 Rx mg tablet Allergies Allergy/AdvReac Type Severity Reaction Status Date / Time orange Allergy Swelling Verified 08/30/23 06:22 of the Eye Exam Const: General: cooperative, healthy appearing and comfortable Nutritional Appearance: average body habitus Orientation/consciousness: oriented to person, oriented to place and oriented to time Resp: Effort & Inspection: normal respiratory effort Cardio: Rate: regular rate Rhythm: regular rhythm Heart sounds: S1 normal heart sound present and S2 normal heart sound present GI: Inspection: normal to inspection ( gravid soft uterus) : Speculum Exam - Vagina: normal appearance of the vagina Speculum Exam - Cervix: normal appearance of the cervix Assessment and Plan Assessment and plan (1) Term : Code(s): Z34.90 - Encounter for supervision of normal , unspecified, unspecified trimester Status: Acute Assessment and Plan: repeat low-transverse section
--- NOTE | 2024-06-12 11:57 | PM.OBTRLD ---
OB - Triage/Final Diagnosis Visit Information Comments/Additional reasons for admission: I have assessed the risk for this patient, Nasrin Soriano, and determined that she would benefit from observation care. Evaluation Laboratory results: Laboratory Tests 05/17/24 13:46 Membranes Rupture Rom plus negative Final Diagnosis (1) False labor: Code(s): O47.9 - False labor, unspecified Status: Acute
== END 2024-05-17 15:45 | disposition home or self-care (01) ==
PROVIDERS: Admitting Provider Obstetrics & Gynecology; PCP Physician Assistant; Visit Provider Obstetrics & Gynecology
DX: O47.03 False labor before 37 completed weeks of gestation, third trimester (principal); Z3A.35 35 weeks gestation of pregnancy
CPT/HCPCS: 84112; 96374; 96375; A9270; G0378; G0379; J1200; J1756; J2765

== ENCOUNTER 2024-06-11 05:29 | Inpatient (IN) | payer OTHER, SELFPAY ==
--- NOTE | 2024-06-09 12:15 | HP_ITS ---
This report was moved to the correct visit on 06/16/2024. The original report was signed by Chris Duckworth MD on 06/09/24 1215. H&P: HPI History of Present Illness Date/Time: 06/09/24 12:13 Chief Complaint: Term with previous section Narrative: a 28-year-old multiparous patient for repeat section. Her has been uncomplicated. PMFSH Past Medical History Medical History (Updated 06/09/24 @ 12:14 by Chris Valles MD) Anxiety Overweight Surgical History Surgical History (Updated 06/09/24 @ 12:14 by Chris Valles MD) History of section Family History Family History Grandparent Acute myocardial infarction Testicular cancer Cerebrovascular accident Diabetes mellitus Hypertension Social History Social History Smoking status: Never smoker Alcohol intake: never Substance use: never Substance use type: does not use Living arrangements: with family Spiritual care concerns: No Meds Home Medications and Allergies Home Medications Medication Instructions Recorded Confirmed Type bupropion HCl 300 mg 24 hr tablet, 300 mg PO DAILY 08/28/23 08/28/23 History extended release hydrocodone 5 mg-acetaminophen 325 1 tablet PO Q4H PRN pain #20 tabs 08/30/23 Rx mg tablet Allergies Allergy/AdvReac Type Severity Reaction Status Date / Time orange Allergy Swelling Verified 08/30/23 06:22 of the Eye Exam Const: General: cooperative, healthy appearing and comfortable Nutritional Appearance: average body habitus Orientation/consciousness: oriented to person, oriented to place and oriented to time Resp: Effort & Inspection: normal respiratory effort Cardio: Rate: regular rate Rhythm: regular rhythm Heart sounds: S1 normal heart sound present and S2 normal heart sound present GI: Inspection: normal to inspection ( gravid soft uterus) : Speculum Exam - Vagina: normal appearance of the vagina Speculum Exam - Cervix: normal appearance of the cervix Assessment and Plan Assessment and plan (1) Term : Code(s): Z34.90 - Encounter for supervision of normal , unspecified, unspecified trimester Status: Acute Assessment and Plan: repeat low-transverse section This report may have been done utilizing a voice recognition system. Attempts have been made to correct errors. However, there may be uncorrected grammatical, spelling, and recognition errors present. Report Initialized date/time: Chris Duckworth MD 06/09/241214 Electronically signed by: Chris Duckworth MD 06/09/241214 [facility]
[2024-06-11] VITALS (61 sets, daily range): BP systolic 60–110; BP diastolic 32–75; PULSE 50–153; RESP 12–18; TEMP 36.2–37.4; O2SAT 96–100; BMI 27.3
[2024-06-11] MEDS: ACETAMINOPHEN 500 MG TABLET 1000 MG PO (05:54)
[2024-06-11] MEDS: LACTATED RINGERS 1,000 ML 125 ML IV CONT ×3 (05:55→09:26)
--- NOTE | 2024-06-11 06:19 | LDADM ---
This patient, Nasrin Soriano, was admitted to Labor/Delivery/Recovery 120 on 06/11/24 at 05:29. Plans for section, pain management and were discussed with patient. Patient/family oriented to hospital policies and general routines including ID bracelet, bed and alarms, visiting hours, pain management, procedures, bathroom and other care routines, personal items, smoking policy, room service/diet and guest tray routines, security routines, and visiting hours. Patient/Family are encouraged to report perceived risks to care and to ask questions if they do not understand what they are told or what they should do. See OBIX for further documentation.
[2024-06-11 06:20] LABS: Basophils Absolute Auto 0.1 K/mm3 (0.0-0.1); Basophils Percent Auto 0.6 % (0.2-1.2); Eosinophils Absolute Auto 0.2 K/mm3 (0-0.3); Eosinophils Percent Auto 2.4 % (0-4.4); Hemoglobin 10.2 g/dL (12.0-15.0); Immature Granulocyte Absolute 0.03 K/mm3 (0.00-0.031); Immature Granulocyte Percent A 0.3 % (0-0.5); Lymphocytes Absolute Auto 1.99 K/mm3 (0.9-3.2); Lymphocytes Percent Auto 23.1 % (18.3-44.2); Mean Corpuscular HGB Conc 32.9 g/dl (32-36); Mean Corpuscular Hemoglobin 29.1 pg (26-34); Mean Corpuscular Volume 88.3 fl (80-100); Mean Platelet Volume 10.5 fl (7.4-10.4); Monocytes Absolute Auto 0.9 K/mm3 (0.1-0.6); Monocytes Percent Auto 10.3 % (2.6-8.5); Neutrophils Absolute Auto 5.5 K/mm3 (1.3-6.7); Neutrophils Percent Auto 63.3 % (45.5-73.1); Platelet Count Result 283 k/mm3 (150-375); Red Blood Count 3.51 M/mm3 (4.2-5.4); Red Cell Distribution Width 15.6 % (11.5-14.5); White Blood Count 8.6 K/mm3 (4.5-10.0)
--- NOTE | 2024-06-11 06:45 | PC.NURSE ---
C/s delayed due to another urgent case.
--- NOTE | 2024-06-11 06:53 | WPDHPUPDATE1 ---
History and Physical Update Update Date/Time: 06/11/24 06:53 History and Physical has been reviewed, including an updated exam of the patient. There are NO changes in the patient's condition. Risks, benefits, and alternatives have been discussed and questions answered. Patient agrees to proceed with procedure.
[2024-06-11 07:10] LABS: HIV 1/2 Ab P24 Ag Result Negative (Negative)
[2024-06-11 08:16] LABS: Rapid Plasma Reagin Non-Reactive (NonReactive)
--- NOTE | 2024-06-11 08:52 | WPDANESEPPF ---
Anes - Initial Pre Proc Eval Procedure: Operation Date: 06/11/24 07:30 Proposed Procedures p Repeat Section - Chris Valles MD Date/Time: 06/11/24 08:52 Surgeon: Chris Valles MD Pre Op Diagnosis: Repeat C Section Patient Data Age: 28 Gender: F Height: 1.6 m Weight: 70 kg Last Vital Signs Temp 99.3 F 06/11/24 07:21 Pulse 69 06/11/24 06:21 BP 108/59 L 06/11/24 06:21 Pulse Ox 100 06/11/24 06:07 O2 Del Method Room Air 06/11/24 06:09 Allergies Allergy/AdvReac Type Severity Reaction Status Date / Time orange Allergy Swelling Verified 08/30/23 06:22 of the Eye Home Medications Medication Instructions Recorded Confirmed Type hydrocodone 5 mg-acetaminophen 325 1 tablet PO Q4H PRN pain #30 tabs 06/11/24 Rx mg tablet Laboratory Tests 06/11/24 05:55 WBC 8.6 K/mm3 (4.5-10.0) RBC 3.51 L M/mm3 (4.2-5.4) Hgb 10.2 L g/dL (12.0-15.0) Hct 31.0 L % (37.0-47.0) MCV 88.3 fl (80-100) MCH 29.1 pg (26-34) MCHC 32.9 g/dl (32-36) RDW 15.6 H % (11.5-14.5) Plt Count 283 k/mm3 (150-375) MPV 10.5 H fl (7.4-10.4) Immature Gran % (Auto) 0.3 % (0-0.5) Neut % (Auto) 63.3 % (45.5-73.1) Lymph % (Auto) 23.1 % (18.3-44.2) [place] % (Auto) 10.3 H % (2.6-8.5) Eos % (Auto) 2.4 % (0-4.4) Baso % (Auto) 0.6 % (0.2-1.2) Lymph # (Auto) 1.99 K/mm3 (0.9-3.2) [place] # (Auto) 0.9 H K/mm3 (0.1-0.6) Eos # (Auto) 0.2 K/mm3 (0-0.3) Baso # (Auto) 0.1 K/mm3 (0.0-0.1) Abs Immat Gran (auto) 0.03 K/mm3 (0.00-0.031) Absolute Neuts (auto) 5.5 K/mm3 (1.3-6.7) Absolute Nucleated RBC 0.000 K/mm3 (0.0-0.012) Nucleated RBC % 0.0 % (0.0-0.2) RPR Non-reactive (NonReactive) HIV 1&2 Ab/P24 Ag 4thGn Negative (Negative) Blood Type A Positive Antibody Screen Negative Patient hx anesthesia problems: none Family hx anesthesia problems: none Results Review: All pre-operative results and documents have been reviewed as part of the pre-operative evaluation. [facility] Past Medical History Medical History Anxiety Overweight Surgical History Surgical History History of section Family History Family History Grandparent Acute myocardial infarction Testicular cancer Cerebrovascular accident Diabetes mellitus Hypertension Social History Social History Smoking status: Never smoker Alcohol intake: never Substance use: never Substance use type: does not use Do You Feel Safe in your Home?: Yes Lack of Transportation: No Lack of Food: Never True Current Housing: I Have Housing Concerned About Future Housing: No Difficulty Paying Gas/Electric Bills: No Difficulty Paying for Meds: No Currently Unemployed: No Education: High School Diploma/GED Difficulty w/ Childcare or Family Care: No Living arrangements: with family Spiritual care concerns: No Anes - Eval Final PreProcedure Day of Procedure 06/11/24 08:52 Patient weight: normal Heart: regular rate and rhythm Lungs: clear to auscultation Airway: Mallampati scale class II Neurological: alert and oriented Last oral intake: >/= 8 hours ASA classification: II Emergent: no Anesthetic plan: proceed Anesthesia type and monitoring: regional spinal and standard monitoring Results Review: All pre-operative results and documents have been reviewed as part of the pre-operative evaluation. Informed Consent: The patient's anesthetic plan and its attendant risks and benefits were discussed with the patient/family/POA. Questions were solicited and answers provided to the satisfaction of the patient/family/POA
[2024-06-11] MEDS: ONDANSETRON INJ 4 MG/2 ML VIAL IV PUSH ×2 (09:23→17:22)
[2024-06-11] MEDS: FAMOTIDINE 20 MG/2 ML VIAL IV PUSH (09:23)
[2024-06-11] MEDS: ceFAZolin 2 GM/D5W 50 ML 2 GM/50 ML BAG IVPB (09:51)
--- NOTE | 2024-06-11 10:46 | W.PM.OBCSD ---
OB - Delivery Note Procedure Delivery date: 06/11/24 Pre-op diagnosis: Previous Delivery Post-op Diagnosis: Same Induction method: None Delivery monitor: External FHT Prior to decision for section, ACOG/SMFM labor guidelines were considered and discussed with the patient and staff. Decision made to proceed with the section.: Yes Procedure Performed: Repeat Surgeon: Chris Valles MD Anesthesia type: Spinal Description of Procedure/Findings: The patient was prepped draped sterile placed supine position. Incision was made through the previous Pfannenstiel incision progressive layers to the fascia. Fascia was incised midline carried in upward outward fashion bilaterally. Underlying muscles were sharply dissected. Parietal peritoneum elevated Lynne clamps and by sharp dissection. This was carried superiorly and inferiorly to dome bladder. Bladder blade placed. Bladder flap. Bladder blade returned. Low-transverse incision made delivered position anterior posterior shoulder was spontaneously. Cord clamped x2 and cut. passed table of 8 at this was placenta delivered manually. Uterus delivered from the abdomen wrapped in moist towel. After assuring no membranes or debris remained in the uterus, the uterus was closed with continuous from lateral edge to lateral edge. A 2nd imbricating running locking Vicryl for with 0 core Vicryl was cut from lateral edge to lateral edge. Hemostasis was assured. Ovaries and tubes appeared within normal limits. The uterus returned to the abdomen. The hysterotomy incision appeared hemostatic. Laps removed and accounted for. The fascia closed with continuous running 0 Vicryl from lateral edge to lateral edge. Irrigation the subcutaneous layer and the skin closed with glue. QBL was quadrant 10cc. All sponge, needle, instrument counts were correct. There were no immediate complications Specimen: No Estimated Blood Loss: 410 Drains: No Packing: No Pathology: None sent Complications: No immediate complications Condition: Stable Disposition: PACU Baby Date of : 06/11/24 Time of : 10:22 Gestational Age by Date: 39 gender: Male Weight (pounds): 7 Weight (ounces): 6 presentation: vertex position: Right Occiput Anterior Placenta delivery description: Manual Removal Cord Vessel Description: 3 Vessels score one minute: 8 score five minutes: 8
--- NOTE | 2024-06-11 10:49 | PM.DS ---
DS: Admitting Diagnosis Discharge Date 06/14/2024 Admitting Diagnosis term /previous section DS: Discharge Diagnosis Discharge Diagnosis (1) History of section: Code(s): Z98.891 - History of uterine scar from previous surgery Status: Acute (2) Term : Code(s): Z34.90 - Encounter for supervision of normal , unspecified, unspecified trimester Status: Acute DS: Summary Hospital Course Reason for hospitalization: patient was admitted for repeat low-transverse section on 06/11/2024. Hospital Course: The patient's hospital course was remarkable. She afebrile. She was up, voiding without difficulty, regular diet ambulating, breast-feeding, and generally without complaints. Time Spent with Patient Time attestation: Total time spent providing and/or coordinating discharge services: Exam Const: General: cooperative, healthy appearing and comfortable Nutritional Appearance: average body habitus Orientation/consciousness: oriented to person, oriented to place and oriented to time HENMT: Head: normal to inspection Resp: Effort & Inspection: normal respiratory effort Cardio: Rate: regular rate Rhythm: regular rhythm Heart sounds: S1 normal heart sound present and S2 normal heart sound present GI: Inspection: normal to inspection and incision ( Is clean dry) DS: Data Data Completed and Pending Labs on day of discharge: Labs from last 24 hours 06/11/24 05:55 WBC 8.6 RBC 3.51 L Hgb 10.2 L Hct 31.0 L MCV 88.3 MCH 29.1 MCHC 32.9 RDW 15.6 H Plt Count 283 MPV 10.5 H Immature Gran % (Auto) 0.3 Neut % (Auto) 63.3 Lymph % (Auto) 23.1 Clinch % (Auto) 10.3 H Eos % (Auto) 2.4 Baso % (Auto) 0.6 Lymph # (Auto) 1.99 Clinch # (Auto) 0.9 H Eos # (Auto) 0.2 Baso # (Auto) 0.1 Abs Immat Gran (auto) 0.03 Absolute Neuts (auto) 5.5 Absolute Nucleated RBC 0.000 Nucleated RBC % 0.0 RPR Non-reactive HIV 1&2 Ab/P24 Ag 4thGn Negative Blood Type A Positive Antibody Screen Negative Discharge Plan Discharge Attending physician on discharge: Chris Duckworth Discharging Clinician: Stefania Louis Patient Disposition: Home, Self-Care Activity: may shower, no straining, may drive after 2 weeks and pelvic rest Diet: heart healthy Wound Care Instructions: follow printed instructions Discharge Instructions: Education: Mom and Baby Guide Given to: Mother Follow-Up: Call your delivering provider's office for an appointment to be seen in: 1 Week Mom and baby should come to the [facility] for the follow-up appointment. Appointment Date/Time: June 15, 2024 at 10:00 am What to expect at your follow-up visit: Call [phone] if you are unable to keep your appointment time. BREAST CARE: * Wear a snug supportive bra. * For engorgement discomfort: Breast Feeding: * Apply warm moist washcloths * Express milk as needed to relieve engorgement * Wear loose clothing Bottle Feeding: * May apply ice packs * For sore nipples: * Identify correct latch-on * Apply warm moist washcloths before and after nursing * Air dry nipples after nursing * May apply Lansinoh cream to nipples ABDOMINAL INCISION: (if applicable) * Allow incision to air dry * Do NOT use lotions for powders on your incision * When showering, allow soap and water to run over the incision, but do not wash incision EPISIOTOMY/PERINEAL CARE: * Until bleeding stops, use your sangeeta bottle after urinating * Change your pad frequently throughout the day * You may take sitz baths several times a day (fill your bathtub with warm water and soak for 20 minutes.) Do NOT bathe in the water * No tub baths until seen by your physician - You may shower ACTIVITY: * Rest as much as possible. * Do not exercise or lift anything h
[2024-06-11] MEDS: SIMETHICONE 80 MG TAB.CHEW PO ×2 (11:30→17:13)
[2024-06-11] MEDS: KETOROLAC 15 MG/ML VIAL (*BKC) IV PUSH ×2 (12:30→18:51)
[2024-06-11] MEDS: ACETAMINOPHEN 325 MG TABLET 650 MG PO ×2 (12:30→18:51)
--- NOTE | 2024-06-11 13:17 | PC.NURSE ---
Patient transferred to post room #289 via stretcher. Support person present. Oriented to unit, room, information board, rooming in, admission packet and security measures. Patient verbalizes understanding.
--- NOTE | 2024-06-11 15:38 | PC.NURSE ---
1500. Introductions were made, then consulted with patient to assess needs related to . Mother led the conversation with her?plans to feed?her infant and the?experience so far. Encouraged understanding of the benefits of skin to skin (demonstrating unwrapping infant and placing upright on her chest), stimulating with massage touch, changing positions to encourage wakefulness, how to watch for early feeding cues, responsive feeding, feeding on demand (aiming for 8-12 times in 24 hours, about every 2-3 hours), milk production, building/maintaining a milk supply, duration of feeding, signs of adequate intake/output and how to record on the feeding sheet. Mother works well with her with encouragement and education. Reviewed positioning and ear, shoulder, hip alignment, supporting the breast to facilitate a deep latch, asymmetrical latch (off-center), leading with the chin with a big, open, wide gape and body close to mother. with no feeding cues at this time, doing s2s with dad. Mom encouraged to call with her next feeding to check a latch. Reviewed comfort measures of healing with a warm, wet washcloth to rinse breast, then leave open to air-dry, good handwashing when or touching the breast/nipples to prevent infection. Mother voiced understanding of skin to skin, stimulating with massage touch, responsive feedings, hand expressed colostrum, talking to to encourage if it has been 2 -2.5 hours since the start of the last , to call if infant does not latch, or if there is discomfort with . Resources used for education were facilitated with the mom and baby guide. Inpatient resources provided with feeding sheet, name written on the communication board, and the mom/baby guide. Parents voiced understanding of information, demonstrated learning and will call if there is a request for assistance. Reported to the Primary RN.
[2024-06-11] MEDS: DEXTROSE 5%/0.45% SOD CHL 1,000 ML 125 ML IV CONT (17:11)
[2024-06-11] MEDS: DOCUSATE SODIUM 100 MG CAPSULE PO (17:13)
[2024-06-12] VITALS (7 sets, daily range): BP systolic 74–106; BP diastolic 39–62; PULSE 65–82; RESP 12–18; TEMP 36.3–36.6; O2SAT 100
[2024-06-12] MEDS: KETOROLAC 15 MG/ML VIAL (*BKC) IV PUSH ×2 (00:44→06:56)
[2024-06-12] MEDS: ACETAMINOPHEN 325 MG TABLET 650 MG PO ×4 (00:44→21:55)
[2024-06-12 05:45] LABS: Hematocrit 25.1 % (37.0-47.0); Hemoglobin 8.3 g/dL (12.0-15.0)
--- NOTE | 2024-06-12 07:56 | WPDANLDPN2 ---
Anes-Prog Note L&D Date/Time: 06/12/24 07:56 Comfortable throughout: section Neuraxial method: spinal Epidural/Spinal procedure site: clean & non-tender Neuro status: Neuro function grossly intact. Cardiovascular status: normal Respiratory status: normal Airway patency: baseline Mental status: baseline Post-Op hydration status: normal Vital Signs: Last Vital Signs Temp 36.6 C 06/12/24 05:09 Pulse 82 06/12/24 05:41 Resp 14 06/12/24 05:41 BP 106/59 L 06/12/24 05:41 Pulse Ox 100 06/12/24 05:41 O2 Del Method Room Air 06/11/24 12:56 Pain score (VAS): 2/10 I/O: Intake & Output 06/11/24 06/11/24 06/12/24 15:59 23:59 07:59 Intake Total 1000 240 Output Total 1320 Balance -320 240 Post-procedural complaints: none Patient feedback: Patient satisfied with anesthetic care.
--- NOTE | 2024-06-12 07:57 | WPDANLDNPN2 ---
Anes-Prog Note L&D-Neuraxial Date/Time: 06/12/24 07:57 Neuraxial medications: intrathecal PF morphine Opiod-related complaints: none Patient feedback: Patient satisfied with post-operative pain management.
[2024-06-12] MEDS: DOCUSATE SODIUM 100 MG CAPSULE PO ×2 (09:05→16:41)
[2024-06-12] MEDS: MULTIVIT/MIN/PREN/FOL AC/IRON TABLET 1 TAB PO (09:05)
[2024-06-12] MEDS: SIMETHICONE 80 MG TAB.CHEW PO ×3 (09:05→16:41)
[2024-06-12] MEDS: POLYSACCHARIDE IRON COMPLEX 150 MG CAPSULE PO ×2 (09:05→16:41)
--- NOTE | 2024-06-12 10:55 | PC.NURSE ---
Mother verbalizes she is able to independently latch with appropriate positioning and alignment. She denies any nipple discomfort and is responsively . Infant is currently meeting outcomes for weight, output, jaundice, blood sugar and feeding frequencies of 8-12 times in 24 hours. Encouraged mom to call out for a latch check today. Mother declines any additional assistance or education at this time. Mother is encouraged to call for assistance if her doesn?t latch, pain with latching, questions or concerns. Mother voiced understanding of information shared along with the mom/baby guide for an additional resource. Reported to the Primary RN.
[2024-06-12] MEDS: IBUPROFEN 600 MG TABLET PO ×2 (12:49→21:55)
[2024-06-12] MEDS: HYDROcodone/acetaminophen (*CRX) 5-325 MG TABLET 1 TAB PO (14:30)
--- NOTE | 2024-06-12 14:30 | PC.NURSE ---
Consulted with patient to assess needs related to . Discussed with mother her successes, concerns and any questions she has. We reviewed working with the , supporting breast, protecting her nipples with an optimal deep latch, good positioning. Encouraged understanding the benefits of skin to skin, responding to feeding cues, milk production, and rotating positions to help with sore nipples. Reviewed positioning and alignment, supporting breast, off-centered (asymmetrical latch) and leading with the chin with big, open, wide gape. latched optimally to the [left] breast in [cradle] position. The infant was [not able] to maintain latch because he would fall asleep after one or two sucks. Baby did feed about 45 minutes ago for 5-10 minutes, so encouraged mom to give him a little more time and try again when she sees feeding cues. Nipple care reviewed with optimal latch, good positioning and using lanolin as needed. Resources used to facilitate learning were used from the positioning and sore nipple handouts. Mother voiced understanding of the education shared, to call for assistance if the does not latch or if there is discomfort with . Reported to the Primary RN.
[2024-06-12] MEDS: HYDROcodone/acetaminophen (*CRX) 10-325 MG TABLET 1 TAB PO (18:32)
[2024-06-13] MEDS: HYDROcodone/acetaminophen (*CRX) 5-325 MG TABLET 1 TAB PO ×2 (00:53→03:56)
[2024-06-13] MEDS: IBUPROFEN 600 MG TABLET PO ×4 (03:55→22:51)
[2024-06-13] MEDS: ACETAMINOPHEN 325 MG TABLET 650 MG PO ×4 (03:55→22:50)
[2024-06-13 04:00] VITALS: BP 111/70; PULSE 77; RESP 16; TEMP 36.6; O2SAT 98
[2024-06-13] MEDS: DOCUSATE SODIUM 100 MG CAPSULE PO ×2 (06:58→16:38)
[2024-06-13] MEDS: POLYSACCHARIDE IRON COMPLEX 150 MG CAPSULE PO ×2 (06:58→16:37)
[2024-06-13] MEDS: MULTIVIT/MIN/PREN/FOL AC/IRON TABLET 1 TAB PO (06:58)
[2024-06-13] MEDS: SIMETHICONE 80 MG TAB.CHEW PO ×2 (06:58→16:37)
[2024-06-13] MEDS: HYDROcodone/acetaminophen (*CRX) 10-325 MG TABLET 1 TAB PO ×3 (08:22→22:50)
--- NOTE | 2024-06-13 09:10 | PC.NURSE ---
Mother verbalizes she is able to independently latch with appropriate positioning and alignment. She denies any nipple discomfort and is responsively . Infant is currently meeting outcomes for weight, output, jaundice, blood sugar and feeding frequencies of 8-12 times in 24 hours. Mother declines any additional assistance or education at this time. Mother is encouraged to call for assistance if her infant doesn?t latch, pain with latching, questions or concerns. Mother voiced understanding of information shared along with the mom/baby guide for an additional resource. Reported to the Primary RN.
--- NOTE | 2024-06-13 10:23 | PM.OBPNVD ---
OB - PN: Subj Subjective Date/time seen: 06/13/24 10:23 Patient comments: no complaints and pain well controlled baby status: doing well OB - PN: Obj Data Labs 06/12/24 04:15 OB - PN A/P Plan day: 2 Plan: routine care Comments: Tolerating anemia without symptoms Time Spent With Patient Time: Total time spent is greater than 50% in coordination of care (as documented) at patient's floor/unit and/or counseling patient: Exam Narrative: inc c/d/i : Bimanual exam- vagina & uterus: other (Uterus firm, nt @U)
[2024-06-13 22:50] VITALS: BP 103/59; PULSE 81; RESP 18; TEMP 36.3; O2SAT 100
[2024-06-14] MEDS: HYDROcodone/acetaminophen (*CRX) 10-325 MG TABLET 1 TAB PO ×3 (03:31→10:23)
[2024-06-14] MEDS: ACETAMINOPHEN 325 MG TABLET 650 MG PO ×2 (04:34→10:20)
[2024-06-14] MEDS: IBUPROFEN 600 MG TABLET PO ×2 (04:34→10:20)
[2024-06-14] MEDS: SIMETHICONE 80 MG TAB.CHEW PO (06:54)
[2024-06-14] MEDS: POLYSACCHARIDE IRON COMPLEX 150 MG CAPSULE PO (06:54)
[2024-06-14] MEDS: DOCUSATE SODIUM 100 MG CAPSULE PO (06:54)
[2024-06-14] MEDS: MULTIVIT/MIN/PREN/FOL AC/IRON TABLET 1 TAB PO (06:54)
[2024-06-14 07:47] VITALS: BP 105/63; PULSE 74; RESP 18; TEMP 36.4; O2SAT 99
--- NOTE | 2024-06-14 09:41 | PM.OBPNVD ---
OB - PN: Subj Subjective Date/time seen: 06/14/24 09:41 Patient comments: no complaints and pain well controlled baby status: doing well OB - PN: Obj Data Labs 06/12/24 04:15 OB - PN A/P Plan day: 3 Plan: routine care and discharge home Time Spent With Patient Time: Total time spent is greater than 50% in coordination of care (as documented) at patient's floor/unit and/or counseling patient: Exam Narrative: inc c/d/i : Bimanual exam- vagina & uterus: other (Uterus firm, nt @U)
--- NOTE | 2024-06-16 12:44 | WPDHPUPDATE1 ---
History and Physical Update Update Date/Time: 06/16/24 12:44 History and Physical has been reviewed, including an updated exam of the patient. There are NO changes in the patient's condition. Risks, benefits, and alternatives have been discussed and questions answered. Patient agrees to proceed with procedure. add review of systems was noncontributory to history and physical
== END 2024-06-14 10:40 | disposition home or self-care (01) | DRG 540 ==
LOC: ANHLDR 06:55 → ANHOB2 06-14 10:05 → ANHLDR 06-16 11:44 → ANHOB2 06-16 11:44
PROVIDERS: Admitting Provider Obstetrics & Gynecology; PCP Physician Assistant; Visit Provider Obstetrics & Gynecology Gynecology
PROC: 10D00Z1 Extraction of Products of Conception, Low, Open Approach (ICD-10-PCS; CPT 59514; principal; 2024-06-11 07:30)
DX: O34.211 Maternal care for low transverse scar from previous cesarean delivery (principal); Z37.0 Single live birth; Z3A.39 39 weeks gestation of pregnancy
CPT/HCPCS: 36415; 85014; 85018; 85025; 86592; 86703; 86850; 86900; 86901; A9270; G0432; J0690; J1596; J1885; J2274; J2371; J2405; J2590; J7030; J7040; J7120